=== PATIENT | female | born 1940 | race Caucasian/White ===

== ENCOUNTER 2018-09-08 18:54 | Observation (INO) | payer MEDICARE ==
[~2018-09-08] VITALS: Ht 162.6 cm; Wt 88.5 kg
--- NOTE | ~2018-09-08 | HEMODYNAMI ---
PATIENT:MANJINDER CONDE MEDICAL RECORD: [id number] : 38 LOCATION:D. D.2118 ADMISSION DATE: 09/08/18 Generatedon:09/09/201813:04 Patient name: MANJINEDR CONDE Patient #: [id number] SSN: : 1940 Date of study: 09/09/2018 Page: Of Hemodynamic Procedure Report Patient Data Patient Demographics Procedure consent was obtained First Name: MANJINDER Gender: Female Last Name: AMAYA : 1940 Patient #: [id number] Age: 78 year(s) Race: Unknown Additional ID: [id number] Contact details [address]: [address] [place] [address] 28 State: [place] City: [place] Zip code: [address] Past Medical History Allergies Allergen Reaction Date Comments Reported Penicillins 09/09/2018 Other allergy 09/09/2018 dilaudid Other allergy 09/09/2018 levaquin Admission Admission Data Admission Date: 09/08/2018 Admission Time: 21:25 Admit Source: Other Room #: D.2118 Procedure Procedure Types Cath Procedure Diagnostic Procedure [facility] w/Coronaries PCI Procedure Coronary Stent Coronary Stent Initial x2 Procedure Description Procedure Date Procedure Date: 09/09/2018 Procedure Start Time: 12:40 Procedure End Time: 13:03 Procedure Staff Name Function Dougie Rubi MD Performing Physician Mai Bowers RT Monitor Todd Painting RT Scrub Bonnie Velazquez RN Nurse Miguelangel lAejandre MD Additional personnel Procedure Data Cath Procedure Fluoroscopy Diagnostic fluoroscopy Total fluoroscopy Time: 4.3 time: 4.3 min min Diagnostic fluoroscopy Total fluoroscopy dose: 377 dose: 377 mGy mGy Contrast Material Contrast Material Type Amount (ml) Isovue 300 97 Entry Location Entry Primary Successful Side Size Upsize Upsize Entry Closure Dumont ccessful Closure Location (Fr) 1 (Fr) 2 (Fr) Remarks Device Remarks Radial Right 6 Fr Mechanical artery Short Compression Estimated blood loss: 10 ml Diagnostic catheters Device Type Used For End Catheter Placement DIAGNOSTIC Langtry 110cm 5 LV Angiography Fr catheter ([id number]) DIAGNOSTIC Langtry 110cm 5 Left Coronary Fr catheter ([id number]) Angiography DIAGNOSTIC Langtry 110cm 5 Right Coronary Fr catheter (255674) Angiography Procedure Complications No complications Procedure Medications Medication Administration Route Dosage Oxygen etCO2 Nasal cannula 3 l/min Lidocaine 2% added to field 20 Heparin Flush Bag added to field 2 bags (1000units/500ml NS) 0.9% NaCl I.V. 100 ml/hr Refer to Anesthesia Notes for Sedation Medications Radial Cocktail I.A. 1 syringe (Verapomil 2mg/Nitro 400mcg/Heparin 1500units) Heparin Bolus I.V. 4000 units Plavix P.O. 75 mg Hemodynamics Rest Heart Rate: 125 (bpm) Snapshots Pre Cath Intra NCS Post Cath Vital Signs Time Heart Resp SPO2 etCO2 NIBP (mmHg) Rhythm Pain Sedation Rate (ipm) (%) (mmHg) Status Level (bpm) 12:28:58 114 24 97 3.7 150/94(117) NSR 0 (11) 10(A) , No pain 12:33:25 105 19 97 2.2 144/92(120) NSR 0 (11) 10(A) , No pain 12:37:53 99 15 96 2.9 125/79(111) NSR 0 (11) 10(A) , No pain 12:42:17 96 13 95 2.9 122/70(85) NSR 0 (11) 10(A) , No pain 12:46:37 100 13 92 1.4 110/77(85) NSR 0 (11) 9(A) , No pain 12:51:00 93 15 92 0 105/58(91) NSR 0 (11) 9(A) , No pain 12:55:20 109 16 92 0 93/53(69) NSR 0 (11) 9(A) , No pain 12:59:36 55 24 93 0 101/51(70) SB 0 (11) 9(A) , No pain 13:03:58 44 32 94 0.7 93/47(63) SB 0 (11) 10(A) , No pain Medications Time Medication Route Dose Verified Delivered Reason Not es Effectiveness by by 12:28:16 Oxygen etCO2 3 l/min Dougie Nicole used for Nasal Elicia Velazquez deck mate cannula 12:30:23 Lidocaine 2% added 20ml Dougie Constantino for local to vial Elicia Rubi MD anesthetic field 12:30:29 Heparin Flush added 2 bags Dougie Constantino used for Bag to Elicia Rubi MD procedure (1000units/500ml field NS) 12:30:40 0.9% NaCl I.V. 100 Dougie Nicole Per physician ml/hr Elicia Velazquez RN 12:35:44 Refer to Dougie Nicole Anesthesia Notes Elicia Velazquez RN for Sedation Medications 12:42:50 Radial Cocktail I.A. 1 Dougie Constantino for (Verapomil syringe Elicia Rubi MD vasodilation 2mg/Nitro 400mcg/Heparin 1500units) 12:48:30 Heparin Bolus I.V. 4000 Dougie Nicole for cony ified units Elicia Velazquez RN anticoagulation with dr rubi 13:04:20 Plavix P.O. 75 mg Dougie Nicole for Elicia Velazquez RN antiplatelet therapy Procedure Log Time Note 12:07:49 Informed consent obtained and on chart 12:07:54 Admit Source: Other 12:08:20 Diagnostic Cath status Elective 12:08:22 Bonnie Velazquez RN sent for patient. Start room use. 12:08:23 Time tracking: Regular hours (M-F 7:00 - 5:00) 12:08:26 Plan of Care:Hemodynamics will remain stable., Cardiac rhythm will remain stable., Comfort level will be maintained., Respiratory function will remain adequate., Patient/ family verbilizes understanding of procedure., Procedure tolerated without complication., Recovers from procedure without complications.. 12:15:07 Quick combo pads placed on patients chest and back. 12:15:23 Patient received from Pre/Post Procedure Room to CCL 3 Alert and oriented. Tansferred to table in Supine position. 12:15:24 Warm blankets applied, and shazia hugger turned on for patient comfort. 12:15:26 Correct patient and procedure confirmed by team. 12:15:28 ECG and BP/O2 sat monitors applied to patient. 12:20:20 Miguelangel Alejandre MD present and monitoring patient for TIVA. 12:27:40 Vital chart was started 12:27:47 Rhythm: atrial fibrillation 12:27:49 Full Disclosure recording started 12:28:03 H&P Date Dictated: 09/08/2018 Within 30 days and on chart.. 12:28:04 Pre-procedure instructions explained to patient. 12:28:04 Pre-op teaching completed and patient verbalized understanding. 12::07 Family in patients room. 12:28:10 Patient NPO since Midnight. 12:28:16 Oxygen 3 l/min etCO2 Nasal cannula was administered by Bonnie Velazquez RN; used for procedure; 12:28:17 Patient allergic to Penicillins 12:28:30 Patient allergic to Other allergydilaudid 12:29:57 Patient allergic to Other allergylevaquin 12:29:59 Is the patient allergic to Iodine/contrast media? No. 12:30:03 Is patient on blood thinner?Yes 12:30:05 ACC The patient was administered the following blood thiners within the last 24 hours: ACCPlavix 12:30:07 Patient diabetic? No. 12:30:15 Previous problem with sedation/anesthesia? No ? 12:30:16 Snore? Yes 12:30:18 Sleep apnea? No 12:30:19 Deviated septum? No 12:30:20 Opens mouth fully? Yes 12:30:21 Sticks out tongue? Yes 12:30:23 Lidocaine 2% 20ml vial added to field was administered by Dougie Rubi MD; for local anesthetic; 12:30:27 Airway obstruction? Yes ASTHMA 12:30:29 Heparin Flush Bag (1000units/500ml NS) 2 bags added to field was administered by Dougie Rubi MD; used for procedure; 12:30:38 Dentures? No ? 12:30:40 0.9% NaCl 100 ml/hr I.V. was administered by Bonnie Velazquez RN; Per physician; 12:30:48 Pre procedure: right radial pulse 2+ Normal; easily identifiable; not easily obliterated 12:30:50 Modified Kj's test Ulnar < 7 seconds 12:30:57 Patient pain scale 0/10 ?. 12:31:09 IV patent on arrival in left forearm with 0.9% NaCl at [facility]. 12:31:12 Lab results completed and on chart. 12:31:15 Right Radial area was prepped with chlora-prep and draped in sterile fashion 12:31:32 PATIENT REFUSES FEMORAL ACCESS 12:31:34 Alarms reviewed by RMarilyn NMarilyn 12:31:34 Sharps counted by scrub and verified by R.N. 12:31:41 Use device set Radial Dx or PCI 12::42 ACIST Syringe (83272) opened to sterile field. 12:31:42 Medline Cath Pack ([id number]) opened to sterile field. 12:31:43 Bag Decanter (2002S) opened to sterile field. 12:31:43 DIAGNOSTIC WIRE .035 260cm J wire (067295) opened to sterile field. 12:31:44 ACIST Hand Control (66321) opened to sterile field. 12:31:44 ACIST Manifold (28108) opened to sterile field. 12:31:45 Tegaderm 4 x 4 (1626W) opened to sterile field. 12:31:46 MBrace Wrist Support ([id number]) opened to sterile field. 12:31:47 SHEATH 6FR Slender (91-5513) opened to sterile field. 12:33:09 Baseline sample Acquired. 12:35:44 Refer to Anesthesia Notes for Sedation Medications was administered by Bonnie Velazquez RN; ; 12:37:10 Final Timeout: patient, procedure, and site verified with staff and physician. All members of the team are in agreement. 12:37:13 Right Radial site verified by team. 12:37:17 Physical assessment completed. ASA score P 2 - A patient with mild systemic disease as per Dougie Rubi MD. 12:37:21 Sedation plan: TIVA Medication:Propofol 12:39:53 Zero performed for pressure channel P1 12:40:49 Procedure started. 12:40:55 Local anesthetic to right radial artery with Lidocaine 2% by Dougie Rubi MD.INITIAL ACCESS ONLY 12:42:15 A 6 Fr Short sheath was inserted into the Right Radial artery 12:42:50 Radial Cocktail (Verapomil 2mg/Nitro 400mcg/Heparin 1500units) 1 syringe I.A. was administered by Dougie Rubi MD; for vasodilation; 12:42:51 A DIAGNOSTIC Langtry 110cm 5 Fr catheter (969427) was advanced over the wire and used for LV Angiography. 12:43:41 GLIDE WIRE Super Stiff Angled 260cm (GK2240) opened to sterile field. 12:44:12 SS GLIDE wire advanced. 12:44:58 LV gram done using ZHENG 12:45:02 Injector settings: Ml/sec: 5, Volume: 15, 12:45:13 EF : 50 % 12:45:32 A DIAGNOSTIC Langtry 110cm 5 Fr catheter (600252) was advanced over the wire and used for Left Coronary Angiography. 12:47:03 A DIAGNOSTIC Langtry 110cm 5 Fr catheter (043382) was advanced over the wire and used for Right Coronary Angiography. 12:47:08 Catheter removed. 12:47:16 Use device set ELICIA PCI 12:47:24 INFLATOR Merit BasixCompak (RZ8342) opened to sterile field. 12:47:28 CHOICE PT Extra Support 182cm wire ([id number]) opened to sterile field. 12:48:30 Heparin Bolus 4000 units I.V. was administered by Bonnie Velazquez RN; for anticoagulation; verified with dr rubi 12:49:26 6 Fr AR 2.0 guide catheter was inserted over the wire 12:49:36 GUIDE 6FR AR 2.0 catheter (DW6LY91) opened to sterile field. 12:49:39 GUIDE 6FR XBLAD 3.5 catheter ([id number]) opened to sterile field. 12:50:14 CHOICE PT ES wire advanced. 12:51:14 Place stent Inflation Number: 1 A INTEGRITY RX 3.0 x 26 stent ([id number]) was prepped and advanced across the Mid RCA. The stent was deployed at 13 ALVARADO for 0:07 (min:sec). 12:52:04 CHOICE PT Extra Support 182cm wire ([id number]) opened to sterile field. 12:52:20 Stent catheter was removed intact over wire. 12:52:20 Wire removed. 12:52:21 Guide catheter removed. 12:52:44 6 Fr XBLAD 3.5 guide catheter was inserted over the wire 12:53:44 CHOICE PT ES wire advanced. 12:55:29 Place stent Inflation Number: 1 A INTEGRITY RX 3.0 x 15 stent ([id number]) was prepped and advanced across the Mid CX. The stent was deployed at 9 ALVARADO for 0:04 (min:sec). 12:55:43 Stent catheter was removed intact over wire. 12:55:44 Wire removed. 12:55:44 Guide catheter removed. 12:56:52 Defibrillator synced and charged to 275 Joules. 12:57:06 Shock delivered. 12:57:10 Patient cardioverted to sinus rhythm . 12:57:18 Sheath removed intact; hemostasis achieved with Mechanical Compression to the Right Radial artery. 12:57:20 Procedure ended.(Physican Out) 12:57:39 Fluoroscopy time 04.30 minutes. 12:57:44 Fluoroscopy dose: 377 mGy 12:57:44 Flurop Dose total: 377 12:57:48 Contrast amount:Isovue 300 97ml. 12:58:58 Sharps counted by scrub and verified by R.N. 12:59:00 TR band inflated with 12cc of air. 12:59:01 Insertion/operative site no bleeding no hematoma. 12:59:05 Post right radial artery:stable, clean and dry 12:59:06 Post Procedure Pulses reassessed and unchanged 12:59:09 Post-procedure physical assessment completed. ASA score P 2 - A patient with mild systemic disease as per Dougie Rubi MD. 12:59:11 Post procedure rhythm: unchanged. 12:59:14 Estimated blood loss: 10 ml 12:59:15 Post procedure instruction explained to patient.Patient verbalizes understanding. 12:59:15 Patient needs reinforcement of post procedure teaching. 12:59:24 Procedure type changed to Cath procedure, Diagnostic procedure, LHC, LHC w/Coronaries, PCI procedure, Coronary Stent, Coronary Stent Initial x2 12:59:29 Procedure Complication : No complications 12:59:37 TR BAND Standard ([id number]) opened to sterile field. 12:59:40 See physician's report for complete and final results. 13:01:18 Procedure and supply charges have been captured, reviewed, submitted and are correct. 13:03:09 Vital chart was stopped 13:03:11 Report given to PCU. 13:03:14 Patient transfered to PCU with Bed. 13:03:23 Procedure ended. 13:03:23 Full Disclosure recording stopped 13:03:27 End room use (Document Last) 13:04:20 Plavix 75 mg P.O. was administered by Bonnie Velazquez RN; for antiplatelet therapy; Intervention Summary Intervention Notes Time ActionType Lesion and Equipment Action# Pressure Duration Attributes Used 12:51:14 Place stent Mid RCA INTEGRITY RX 1 13 00:07 3.0 x 26 stent ([id number]) 12:55:29 Place stent Mid CX INTEGRITY RX 1 9 00:04 3.0 x 15 stent ([id number]) Device Usage Item Name Manufacture Quantity Catalog Number Hospital Part Current Mini mal Lot# / Charge Number Stock Stock Serial# Code ACIST Acist 1 15194 238664 110739 340494 20 Syringe Medical (96833) Systems Inc Medline Cath Medline 1 [id number] 974850 43161 396452 5 Pack ([id number]) Bag Decanter Microtek 1 2001S 037194 04947 593184 5 (2001S) Medical Inc. DIAGNOSTIC St Esdras 1 262755 146134 104015 684972 30 WIRE .035 260cm J wire (786097) ACIST Hand Acist 1 92720 486847 485627 080238 5 Control Medical (93692) Systems Inc ACIST Acist 1 55358 833926 742040 426141 5 Manifold Medical (34703) Systems Inc Tegaderm 4 x 3M 1 1626W 557757 563190 829464 5 4 (1626W) MBrace Wrist Advanced 1 140-0250-00 871581 79903 352524 5 Support Vascular (003236396) Dynamics SHEATH 6FR Terumo 1 [id number] 152072 950614 608826 5 Slender (80-1060) DIAGNOSTIC Terumo 1 40-5013 746717 064952 292400 5 Langtry 110cm 5 Fr catheter (515793) GLIDE WIRE Terumo 1 VR6783 116383 011702 175168 5 Super Stiff Angled 260cm (XT8764) INFLATOR [facility] 1 CC4699 046194 462300 466398 15 [facility] Medical BasixCompak (BI5596) CHOICE PT Tolstoy 2 [id number] 494821 632416 874534 5 Extra Scientific Support 182cm wire ([id number]) GUIDE 6FR AR Medtronic 1 [id number] 810654 58933 432141 1 2.0 catheter (QC9IU12) GUIDE 6FR Cardinal 1 [id number] 167715 547677 741205 10 XBLAD 3.5 Health catheter (94300363) INTEGRITY RX Medtronic 1 [id number] 794689 612388 770458 5 [id number] 3.0 x 26 stent ([id number]) INTEGRITY RX Medtronic 1 [id number] 463413 089225 861706 5 [id number] 3.0 x 15 stent ([id number]) TR BAND Terumo 1 [id number] 503356 969839 642398 40 Standard ([id number]) Signature Audit Mobile Stage Time Signature Unsigned Intra-Procedure 09/09/2018 Mai 1:04:52 PM Counts RT(R) Signatures Monitor : Mai Signature : Counts RT Date : Time : [address] [address]
--- NOTE | 2018-09-08 21:44 | NUR ---
PT ARRIVED TO ROOM 2117, PT IS AAO, UP WITH MINIMAL ASSIST. PT TO BED FROM [facility] FROM EMS. PT DENIES ANY NEEDS. NO S/S OF DISTRESS, SANDWICH GIVEN. PT BEDLOW AND CALL LIGHT INREACH. WILL CPOC
[2018-09-08] MEDS ORDERED: KEPPRA500 MG PO (23:03)
[2018-09-08] MEDS ORDERED: NEXIUM40 MG PO (23:04)
[2018-09-08] MEDS ORDERED: CALAN SR120 MG PO (23:04)
[2018-09-08] MEDS ORDERED: LASIX40 MG PO (23:05)
[2018-09-08] MEDS ORDERED: CATAPRES0.1 MG PO (23:05)
[2018-09-08] MEDS ORDERED: INDERAL 40 MG T40 MG PO (23:05)
[2018-09-08] MEDS ORDERED: POTASSIUM CHLO10 ME1 PO (23:06)
[2018-09-08] MEDS ORDERED: LEXAPRO20 MG PO (23:06)
[2018-09-08] MEDS ORDERED: LIPITOR10 MG PO (23:06)
[2018-09-08] MEDS ORDERED: OSTEO BI-FLEX1 EAC1 PO (23:08)
--- NOTE | 2018-09-08 23:43 | NUR ---
SPOKE WITH DR WAGNER REGARDING ADMIT, ZOFRAN AND MORPHINE ORDERED. PLAVIX 600MG PO. PT IS TO BE NPO AFTER MIDNIGHT. PT MED REC AND PHARMACY COMPLETE. HISTORY COMPLETE. WILL CPOC
[2018-09-09] VITALS: BP 148/73
--- NOTE | 2018-09-09 01:11 | NUR ---
PT IN UNCONTROLLED A FIB. CALLED DR WAGNER BECAUSE MEJÍA PAPER WORK SHOWED NS WITH [employer]. PT DENIES ANY HISTORY OF A FIB. BETAPACE 120MG BID ORDERED. WILL GIVE WHEN UNIX SYSTEMS ADMINISTRATOR PULLS MEDICATION.
--- NOTE | 2018-09-09 02:12 | NUR ---
BETAPACE GIVEN ORDERED.
[2018-09-09 03:37] VITALS: BP 148/88; BMI 33.5
[2018-09-09 04:00] VITALS: BP 131/91
[2018-09-09 08:08] VITALS: BP 134/70
[2018-09-09 09:43] LABS: BASOPHILS 0.3 % (0-2); EOSINOPHILS 0.1 % (0-7); HEMATOCRIT 29.9 % (36.0-48.0); HEMOGLOBIN 9.2 g/dL (12-16); IMMATURE GRANULOCYTES 0.4 % (0-5); LYMPHOCYTES 20.9 % (15-50); MCH 26.6 pg (26.0-34.0); MCHC 30.8 g/dL (31.0-37.0); MCV 86.4 fL (80.0-100.0); MEAN PLATELET VOLUME 11.1 fL (7.4-10.4); MONOCYTES 11.3 % (2-11); PLATELET COUNT 183 10x3/uL (130-400); RBC 3.46 10x6/uL (4.00-5.40); WBC 7.8 10x3/uL (4.8-10.8)
[2018-09-09 09:50] LABS: ANION GAP 16.3 mmol/L (8-16); CALCIUM 7.9 mg/dL (8.5-10.1); CARBON DIOXIDE 23.5 mmol/L (21.0-32.0); CREATININE - SERUM 1.2 mg/dL (0.6-1.3); POTASSIUM - SERUM 3.8 mmol/L (3.5-5.1)
--- NOTE | 2018-09-09 10:29 | NUR ---
1020- Kathi, pt's nurse notified myself that the pt refuses groin access if taken to cardiac oil field laborer. I visited with pt and did a modified allens test on her wrist in which she passed, and notified pt that we would do everything possible to go throught the wrist, but sometimes we still need to access groin if the wrist access is not appropriate. Pt states that under no circumstance will she allow us to access her groin. I asked pt even if she were dying, she said under no circumstance to go groin. Pt reports bad experience with blood clots and bruising upon last groin access. It is noted on pt consent form and Dr Rubi was made aware.
[2018-09-09 12:02] VITALS: BP 144/97
--- NOTE | 2018-09-09 12:10 | NUR ---
PRE-OPS GIVEN. TO COMMUNICATIONS CLERK BY BED.
[2018-09-09 12:50] VITALS: Ht 162.6 cm; Wt 88.5 kg
--- NOTE | 2018-09-09 13:26 | NUR ---
BACK FROM THERAPIST. VS WNL. RIGHT WRIST STABLE WITH TR BAND INTACT. TELEMETRY SB 58. WILL CONT. PLAN OF CARE.
[2018-09-09] MEDS ORDERED: BETAPACE 80 MG80 MG PO (13:35)
[2018-09-09] MEDS ORDERED: PLAVIX75 MG PO (13:36)
[2018-09-09 16:14] VITALS: BP 157/72
--- NOTE | 2018-09-09 17:04 | NUR ---
TR BAND DCD WITHOUT BLEEDING OR HEMATOMA NOTED.
--- NOTE | 2018-09-09 17:30 | NUR ---
IV AND TELEMETRY DCD. DC PLANS GIVEN. UNDERSTANDING VOICED. ESCORTED TO CAR BY W/C.
--- NOTE | 2018-09-09 17:33 | NUR ---
IV AND TELEMETRY DCD. DC PLANS GIVEN. UNDERSTANDING VOICED.
--- NOTE | 2018-09-09 18:01 | NUR ---
ESCORTED TO CAR BY W/C.
--- NOTE | 2018-09-10 08:29 | MORECARE ---
CASE MANAGEMENT DISCHARGE SUMMARY PATIENT: MANJINDER CONDE UNIT: [id number] ADM DATE: 09/08/18 AGE: 78 : 39 SEX: F ROOM/BED: D.2118 AUTHOR: BETTY LUTZ PHYSICIAN: REFERRING PHYSICIAN: ALIX WAGNER MD DATE OF SERVICE: 09/10/18 Discharge Plan Patient Name: MANJINDER CONDE Facility: [facility]:[place] : 1940 Planned Disposition: Home Anticipated Discharge Date: 09/09/18 Discharge Date: 09/09/2018 Expected LOS: 1 Initial Reviewer: [email or web address] Initial Review Date: 09/10/2018 Generated: 09/10/18 9:28 am Patient Name: MANJINDER CONDE Page 38513 at 0829 All edits/amendments must be made on the electronic document DICTATION DATE: 09/10/18827 PROJ MGR: GRACIE 09/10/18827 RPT#: [id number] DC DATE:09/09/18 STATUS: DIS IN [facility] [address] [facility] [place] [address] END OF REPORT
--- NOTE | 2018-09-10 18:15 | DS ---
PATIENT:MANJINDER PERSAUD :[birth year] MEDICAL RECORD: [id number] DISCHARGE SUMMARY ADMISSION DATE: 09/08/18 DISCHARGE DATE: 09/09/18 DIAGNOSES: 1. Atrial fibrillation. 2. Status post DC cardioversion. 3. Angina. 4. Percutaneous transluminal coronary angioplasty stent of right coronary artery and left circumflex on this admission. HOSPITAL COURSE: Mrs. Persaud presents with anginal symptomatology as well as new onset atrial fibrillation, found to have 2-vessel coronary artery disease, underwent successful PTCA stent of both territories, cardioverted and placed on sotalol for atrial fibrillation, discharged in sinus rhythm. We will follow up with [facility] in 1 month. TRANSINT:[id number] Voice Confirmation ID: [id number] DOCUMENT ID: [id number] ALIX WAGNER MD at 1815 CC: [id number] DICTATION DATE: 09/09/18 1302 SEXUAL ASSAULT COUNSELLOR: 09/10/18 0020 DIS IN 09/09/18 [id number] [place] [address]
--- NOTE | 2018-09-10 18:15 | OP ---
PATIENT NAME: MANJINDER CONDE MEDICAL RECORD: [id number] :[birth year] LOCATION:D.M2 D.2118 ADMISSION DATE:09/08/18 SURGEON: ALIX WAGNER MD DATE OF OPERATION: 09/09/2018 DATE OF SERVICE: 09/09/2018 PROCEDURES: 1. PTCA stent RCA. 2. PTCA stent left circumflex. 3. Left heart catheterization. 4. Selective coronary angiography. 5. Left ventriculogram. 6. DC cardioversion. INDICATION: Angina, coronary artery disease, and atrial fibrillation. DESCRIPTION OF PROCEDURE: After informed consent was obtained and after detailed description of risks, benefits as well as alternative therapies, the patient elected to proceed with angiogram and angioplasty. IV conscious sedation was performed per anesthesia. Continuous heart rate, O2 saturation, blood pressure monitoring all undertaken, all of which remains stable. She received 1 shock at 275 joules restoring sinus rhythm. FINDINGS: Left ventriculogram was performed in standard 30-degree ZHENG view, reveals preserved cardiac wall motion, ejection fraction 50%. SELECTIVE CORONARY ANGIOGRAPHY: 1. Left main is with no significant angiographic disease. 2. Left anterior descending has moderate irregularities, but no flow-limiting stenosis. 3. The left circumflex has a 90% stenosis in the mid vessel. 4. The right coronary has a long area of 75% to 80% stenosis in the mid vessel. PTCA STENT OF THE RCA: The stent used was a 3.0 x 26 mm Integrity. Result was 0% residual stenosis throughout. PTCA STENT OF LEFT CIRCUMFLEX: The stent used was a 3.0 x 15 mm Integrity. Result was 0% residual stenosis. OVERALL IMPRESSION: 1. Successful percutaneous transluminal coronary angioplasty stent of the right coronary artery and circumflex, both going from 80% to 90% initial stenosis to 0% residual. 2. Successful direct current cardioversion from atrial fibrillation to sinus rhythm. TRANSINT:[id number] Voice Confirmation ID: [id number] DOCUMENT ID: [id number] OPERATIVE REPORT [id number] MANJINDER CONDE JEFFREY MD at 1815 CC: [id number] DICTATION DATE: 09/09/18 1304 MAGNETIC PROSPECTING SUPERVISOR: 09/09/18 1326 DIS IN 09/09/18 [place] [address]
== END 2018-09-09 18:01 | disposition home or self-care (01) ==
LOC: D.M2 18:54 → OBSVTIME 21:25 → D.M2 09-09 18:01
PROVIDERS: ADMIT Internal Medicine Interventional Cardiology
DX: I25.119 Atherosclerotic heart disease of native coronary artery with unspecified angina pectoris (principal); I48.91 Unspecified atrial fibrillation; Z86.73 Personal history of transient ischemic attack (TIA), and cerebral infarction without residual deficits; K21.9 Gastro-esophageal reflux disease without esophagitis; I11.0 Hypertensive heart disease with heart failure; I50.9 Heart failure, unspecified; Z87.891 Personal history of nicotine dependence